=== PATIENT | female | born 1975 | race Caucasian/White ===

== ENCOUNTER 2021-09-08 15:59 | Emergency (ER) | payer OTHER ==
[2021-09-08 16:37] VITALS: BP 127/63; PULSE 87; TEMP 98; BMI 20.6
[2021-09-08] MEDS ORDERED: LIDOCAINE 1%/EPI 1:100000 (50 ML MULTI DOSE VIAL) NR ONE (16:51)
[2021-09-08] MEDS ORDERED: LIDOCAINE HCL 2% (20ML MULTI-DOSE VIAL) ONE (16:51)
[2021-09-08] MEDS ORDERED: LIDOCAINE HCL/EPINEPHRINE/PF 20 ML VIAL ONE (16:54)
[2021-09-08] MEDS ORDERED: IBUPROFEN 400 MG TABLET (FP) PO ONE ×2 (17:48→17:49)
== END 2021-09-08 18:04 | disposition home or self-care (01) ==
LOC: FER 15:59
DX: S00.83XA Contusion of other part of head, initial encounter (principal); S80.212A Abrasion, left knee, initial encounter; S60.511A Abrasion of right hand, initial encounter; W19.XXXA Unspecified fall, initial encounter
CPT/HCPCS: 99283-25